=== PATIENT | male | born 1950 | race Caucasian/White ===

== ENCOUNTER 2016-12-02 12:34 | Inpatient (IN) | payer OTHER ==
[~2016-12-02] VITALS: Ht 177.8 cm; Wt 148.5 kg
[2016-12-02 13:18] LABS: HEMATOCRIT 28.7 % (38.0-50.0); MCH 33.6 PG (29.0-34.0); MCHC 33.8 G/DL (30.0-36.0); MCV 99.3 FL (86-99); MEAN PLAT.VOLUME 9.6 uM^3 (9.0-12.4); PLATELET COUNT 139 K/uL (156-360); RBC DIS.WIDTH-CV 13.4 % (11.8-14.6); RBC DIS.WIDTH-SD 48.8 % (39-53); RED BLOOD COUNT 2.89 M/uL (4.00-5.50); WHITE BLOOD COUNT 7.4 K/uL (4.1-10.2)
[2016-12-02 13:32] LABS: CHLORIDE 110 mEq/L (99-109); SODIUM 138 mEq/L (136-147)
[2016-12-02 13:34] LABS: GLUCOSE 198 mg/dL (70-99)
[2016-12-02 13:35] LABS: ANION GAP 11 MEQ/L (2-14)
[2016-12-02 13:38] LABS: GFR ESTIMATE (CALCULATED) 54 mL/min/
[2016-12-02] MEDS ORDERED: ARICEPT23 MG PO (13:38)
[2016-12-02 13:39] LABS: UREA NITROGEN (BUN) 31 mg/dL (9-23)
[2016-12-02] MEDS ORDERED: DOXYCYCLINE HY100 MG PO (13:39)
[2016-12-02] MEDS ORDERED: LO-DOSE ASPIRIN81 M1 PO (13:40)
[2016-12-02] MEDS ORDERED: IMDUR30 MG PO (13:41)
[2016-12-02] MEDS ORDERED: EZETIMIBE10 MG PO (13:41)
[2016-12-02] MEDS ORDERED: METOPROLOL SUCC50 MG PO (13:43)
[2016-12-02] MEDS ORDERED: MICARDIS80 MG PO (13:43)
[2016-12-02 13:44] LABS: TROP-I INTERPRETATION NEGATIVE; TROPONIN-I < 0.01 ng/mL (0.0-0.30)
[2016-12-02] MEDS ORDERED: OXAYDO5 MG PO (13:44)
[2016-12-02] MEDS ORDERED: MEMANTINE HCL10 MG PO (13:44)
[2016-12-02] MEDS ORDERED: NIACIN 500 MG500 MG PO (13:44)
[2016-12-02] MEDS ORDERED: ACTOS15 MG PO (13:45)
[2016-12-02] MEDS ORDERED: ZOLOFT100 MG PO (13:45)
[2016-12-02] MEDS ORDERED: SIMVASTATIN40 MG PO (13:46)
[2016-12-02] MEDS ORDERED: TRESIBA FL100 UNIT/1 SC (13:46)
[2016-12-02] MEDS ORDERED: ALDACTONE25 MG PO (13:46)
[2016-12-02 14:27] LABS: ADD MIUA? YES; BILIRUBIN NEGATIVE; BLOOD SMALL; COLOR YELLOW ((YELLOW)); GLUCOSE (STRIP) NEGATIVE; KETONES NEGATIVE; LEUKOCYTES NEGATIVE; NITRITE NEGATIVE; PROTEIN (STRIP) 100; SPECIFIC GRAVITY 1.018 (1.000-1.030); UROBILINOGEN 0.2 MG/DL (0.2-1.0)
[2016-12-02 14:44] LABS: BACTERIA NONE SEEN /HPF; EPITHELIAL CELLS RARE /HPF; HYALINE CASTS 0-5 /LPF; MUCUS TRACE /LPF; RED BLOOD CELLS 0-5 /HPF (0-5); UCUL ADDED? NO; WHITE BLOOD CELLS 0-5 /HPF (0-5)
[2016-12-02 16:18] LABS: TROP-I INTERPRETATION NEGATIVE; TROPONIN-I < 0.01 ng/mL (0.0-0.30)
[2016-12-02] MEDS ORDERED: VITAMIN D-3 401 EACH PO (16:24)
[2016-12-02] MEDS ORDERED: ERGOCALCIF50000 UNIT PO (16:24)
[2016-12-02] MEDS ORDERED: GLUCOSAMINE CH1 EAC2 PO (16:26)
[2016-12-02] MEDS ORDERED: VITAMIN B COMP1 EACH PO (16:29)
[2016-12-02] MEDS ORDERED: FEOSOL325 MG PO (16:29)
[2016-12-02] MEDS ORDERED: VITAMIN C500 M1 PO (16:29)
[2016-12-02 19:32] VITALS: BP 136/63
[2016-12-02 22:07] LABS: POINT-OF-CARE METER ID UU13113831
[2016-12-02 23:12] VITALS: BP 141/65
[2016-12-03] VITALS (8 sets, daily range): BP systolic 124–188; BP diastolic 58–86
[2016-12-03 01:15] LABS: TROP-I INTERPRETATION NEGATIVE; TROPONIN-I < 0.01 ng/mL (0.0-0.30)
[2016-12-03 05:56] LABS: ALKALINE PHOSPHATASE 94 IU/L (3-129); ANION GAP 9 MEQ/L (2-14); CHLORIDE 112 MEQ/L (99-109); DIRECT BILIRUBIN 0.1 mg/dL (0.0-0.3); GFR ESTIMATE (CALCULATED) 54 mL/min/; POTASSIUM 4.5 MEQ/L (3.7-5.4); SAMPLE HEMOLYSIS CHECK 0; SAMPLE ICTERIC CHECK 0; SAMPLE LIPEMIA CHECK 0; SODIUM 143 MEQ/L (136-147); TOTAL BILIRUBIN 0.7 MG/DL (0.0-1.0); UREA NITROGEN (BUN) 33 mg/dL (9-23)
[2016-12-03 06:05] LABS: TROP-I INTERPRETATION NEGATIVE; TROPONIN-I 0.02 ng/mL (0.0-0.30)
[2016-12-03 06:19] LABS: EOSINOPHIL (%) 1.9 % (0-5); EOSINOPHIL COUNT 0.1 K/uL (0-0.3); IMMATURE GRANULOCYTE (%) 0.4 % (0.0-0.7); INSTRUMENT ABS NEUTROPHIL CT 4.9 K/uL; LYMPHOCYTE COUNT 1.4 K/uL (1.0-2.8); MCH 34.7 PG (29.0-34.0); MCHC 33.6 G/DL (30.0-36.0); MEAN PLAT.VOLUME 9.7 uM^3 (9.0-12.4); MONOCYTE (%) 9.3 % (3-12); MONOCYTE COUNT 0.7 K/uL (0-0.8); NEUTROPHIL (%) 68.3 % (45-76); NEUTROPHIL COUNT 4.9 K/uL (1.8-6.4); PLATELET COUNT 135 K/uL (156-360); RBC DIS.WIDTH-CV 13.4 % (11.8-14.6); RBC DIS.WIDTH-SD 50.3 % (39-53); RED BLOOD COUNT 2.71 M/uL (4.00-5.50); WHITE BLOOD COUNT 7.2 K/uL (4.1-10.2)
[2016-12-03 06:23] LABS: MCV 103.3 FL (86-99)
[2016-12-03 06:25] LABS: GLUCOSE 81 mg/dL (70-99)
[2016-12-03 09:15] LABS: POINT-OF-CARE METER ID UU13113700
[2016-12-03 17:44] LABS: POINT-OF-CARE METER ID UU14174216
[2016-12-04 03:43] VITALS: BP 134/61
[2016-12-04 06:08] LABS: IRON 111 MCG/DL (35-150)
[2016-12-04 07:13] VITALS: BP 122/63
[2016-12-04 08:27] LABS: POINT-OF-CARE METER ID UU13113698; POINT-OF-CARE USER ID NUTSLF44
[2016-12-04 11:32] LABS: POINT-OF-CARE METER ID UU14314088; POINT-OF-CARE USER ID NUTSLF44
[2016-12-04 11:53] VITALS: BP 134/63
[2016-12-04 16:17] VITALS: BP 131/61
[2016-12-04 16:23] LABS: POINT-OF-CARE METER ID UU14314088; POINT-OF-CARE USER ID NUTSLF44
[2016-12-04 19:44] VITALS: BP 134/61
[2016-12-04 21:06] LABS: POINT-OF-CARE METER ID UU14174216
[2016-12-04 22:39] VITALS: BP 115/57
[2016-12-05 03:45] VITALS: BP 150/72
[2016-12-05 07:44] VITALS: BP 158/86
[2016-12-05 08:16] LABS: POINT-OF-CARE METER ID UU14174216; POINT-OF-CARE USER ID ENVKC36
[2016-12-05 11:48] LABS: POINT-OF-CARE METER ID UU14174216; POINT-OF-CARE USER ID ENVKC36
[2016-12-05 11:57] VITALS: BP 142/65
[2016-12-05] MEDS ORDERED: CYANOCOBALAM1000 MCG PO (12:10)
[2016-12-05 16:45] LABS: POINT-OF-CARE METER ID UU14314088; POINT-OF-CARE USER ID ENVKC36
[2016-12-05 18:00] VITALS: BP 145/65
== END 2016-12-05 19:00 | DRG 101 ==
LOC: EME 12:34 → EDOF 17:08 → ENRESERV 17:09 → 5WEST 19:05 → CANRESERV 12-03 11:24 → 4EAST 12-03 11:24 → ENRESERV 12-03 11:24 → 5WEST 12-03 11:24 → ENRESERV 12-03 11:27 → 4EAST 12-03 16:09 → ENPENDDIS 12-05 15:00 → 4EAST 12-05 19:00
PROVIDERS: Internal Medicine; Physician Assistant Medical
PROC: 0HQ0XZZ Repair Scalp Skin, External Approach (ICD-10-PCS; principal; 2016-12-02)
DX: R56.9 Unspecified convulsions (principal); R55 Syncope and collapse; E87.2 Acidosis; E11.22 Type 2 diabetes mellitus with diabetic chronic kidney disease; I13.10 Hypertensive heart and chronic kidney disease without heart failure, with stage 1 through stage 4 chronic kidney disease, or unspecified chronic kidney disease; N18.3 Chronic kidney disease, stage 3 (moderate); E86.0 Dehydration; S01.01XA Laceration without foreign body of scalp, initial encounter; S00.11XA Contusion of right eyelid and periocular area, initial encounter; W01.0XXA Fall on same level from slipping, tripping and stumbling without subsequent striking against object, initial encounter; G30.0 Alzheimer's disease with early onset; F02.80 Dementia in other diseases classified elsewhere, unspecified severity, without behavioral disturbance, psychotic disturbance, mood disturbance, and anxiety; D50.9 Iron deficiency anemia, unspecified; E53.8 Deficiency of other specified B group vitamins; E78.5 Hyperlipidemia, unspecified; G47.33 Obstructive sleep apnea (adult) (pediatric); F32.9 Major depressive disorder, single episode, unspecified; I25.10 Atherosclerotic heart disease of native coronary artery without angina pectoris; I73.9 Peripheral vascular disease, unspecified; M19.90 Unspecified osteoarthritis, unspecified site; Z96.643 Presence of artificial hip joint, bilateral; E66.01 Morbid (severe) obesity due to excess calories; Z68.42 Body mass index [BMI] 45.0-49.9, adult; Y92.094 Garage of other non-institutional residence as the place of occurrence of the external cause; Z91.81 History of falling; Z95.1 Presence of aortocoronary bypass graft; Z95.5 Presence of coronary angioplasty implant and graft
CPT/HCPCS: 70450; 71010; 72125; 73030; 80048; 80076; 81003; 82607; 82746; 82948; 83540; 84466; 84484; 85025; 85027; 93005; 93306; 95819; 99281; 99285; G0378; J1650; J1815; J2270; J2405; J7030; J7040

== ENCOUNTER 2016-12-05 14:09 | Inpatient (IN) | payer OTHER ==
[~2016-12-05] VITALS: Ht 177.8 cm; Wt 149.1 kg
[~2016-12-05 14:09] MED LIST: ACTOS15 MG PO; ALDACTONE25 MG PO; ARICEPT23 MG PO; CYANOCOBALAM1000 MCG PO; DOXYCYCLINE HY100 MG PO; ERGOCALCIF50000 UNIT PO; EZETIMIBE10 MG PO; FEOSOL325 MG PO; GLUCOSAMINE CH1 EAC2 PO; IMDUR30 MG PO; LO-DOSE ASPIRIN81 M1 PO; MEMANTINE HCL10 MG PO; METOPROLOL SUCC50 MG PO; MICARDIS80 MG PO; NIACIN 500 MG500 MG PO; OXAYDO5 MG PO; SIMVASTATIN40 MG PO; TRESIBA FL100 UNIT/1 SC; VITAMIN B COMP1 EACH PO; VITAMIN C500 M1 PO; VITAMIN D-3 401 EACH PO; ZOLOFT100 MG PO
[2016-12-05 19:29] VITALS: BP 127/77
[2016-12-05 19:36] VITALS: BP 127/77
[2016-12-05 21:44] LABS: POINT-OF-CARE METER ID UU13113720
[2016-12-06 05:28] VITALS: BP 153/85
[2016-12-06 06:37] LABS: MCH 34.7 PG (29.0-34.0); MCHC 34.4 G/DL (30.0-36.0); MCV 100.7 FL (86-99); PLATELET COUNT 144 K/uL (156-360); RBC DIS.WIDTH-CV 13.4 % (11.8-14.6); RBC DIS.WIDTH-SD 49.1 % (39-53); RED BLOOD COUNT 2.68 M/uL (4.00-5.50); WHITE BLOOD COUNT 5.8 K/uL (4.1-10.2)
[2016-12-06 07:00] LABS: POINT-OF-CARE METER ID UU14174215; POINT-OF-CARE USER ID ENVGAF
[2016-12-06 07:13] LABS: ALKALINE PHOSPHATASE 90 IU/L (3-129); ANION GAP 9 MEQ/L (2-14); CHLORIDE 105 MEQ/L (99-109); GFR ESTIMATE (CALCULATED) > 59 mL/min/; GLUCOSE 108 mg/dL (70-99); POTASSIUM 4.6 MEQ/L (3.7-5.4); SAMPLE HEMOLYSIS CHECK 0; SAMPLE ICTERIC CHECK 0; SAMPLE LIPEMIA CHECK 0; SODIUM 137 MEQ/L (136-147); UREA NITROGEN (BUN) 25 mg/dL (9-23)
[2016-12-06 07:14] LABS: TOTAL BILIRUBIN 0.5 MG/DL (0.0-1.0)
[2016-12-06 11:47] LABS: POINT-OF-CARE METER ID UU14174215; POINT-OF-CARE USER ID ENVGAF
[2016-12-06 15:17] VITALS: BP 111/86
[2016-12-06 16:39] LABS: POINT-OF-CARE METER ID UU13113720
[2016-12-06 20:53] LABS: POINT-OF-CARE METER ID UU13113720
[2016-12-07 05:31] VITALS: BP 135/60
[2016-12-07 06:54] LABS: POINT-OF-CARE METER ID UU14174215; POINT-OF-CARE USER ID ENVGAF
[2016-12-07 11:57] LABS: POINT-OF-CARE METER ID UU14174215
[2016-12-07 15:12] VITALS: BP 121/56
[2016-12-07 17:01] LABS: POINT-OF-CARE METER ID UU13113720
[2016-12-07 21:11] LABS: POINT-OF-CARE METER ID UU13113720
[2016-12-08 04:45] VITALS: BP 141/67
[2016-12-08 07:27] LABS: POINT-OF-CARE METER ID UU14174215
[2016-12-08 11:27] LABS: POINT-OF-CARE METER ID UU13113720; POINT-OF-CARE USER ID AHSSSJB31
[2016-12-08 15:16] VITALS: BP 105/53
[2016-12-08 16:50] LABS: POINT-OF-CARE METER ID UU14174215
[2016-12-08 21:20] LABS: POINT-OF-CARE METER ID UU14174215
[2016-12-09 04:26] VITALS: BP 128/82
[2016-12-09 07:09] LABS: POINT-OF-CARE METER ID UU14174215
[2016-12-09 11:02] LABS: POINT-OF-CARE METER ID UU14174215
[2016-12-09 13:30] VITALS: BP 107/53
[2016-12-09 16:02] VITALS: BP 117/58
[2016-12-09 16:44] LABS: POINT-OF-CARE METER ID UU13113720
[2016-12-09 21:12] LABS: POINT-OF-CARE METER ID UU14174215
[2016-12-10 04:41] VITALS: BP 131/61
[2016-12-10 06:56] LABS: POINT-OF-CARE METER ID UU13113720; POINT-OF-CARE USER ID ENVGAF
[2016-12-10 11:03] LABS: POINT-OF-CARE METER ID UU14174215
[2016-12-10 15:14] VITALS: BP 110/53
[2016-12-10 16:06] LABS: POINT-OF-CARE METER ID UU14174215
[2016-12-10 21:04] LABS: POINT-OF-CARE METER ID UU14174215
[2016-12-11 05:34] VITALS: BP 121/59
[2016-12-11 06:54] LABS: POINT-OF-CARE METER ID UU13113720; POINT-OF-CARE USER ID ENVGAF
[2016-12-11 11:39] LABS: POINT-OF-CARE METER ID UU14174215
[2016-12-11 15:08] VITALS: BP 135/61
[2016-12-11 16:33] LABS: POINT-OF-CARE METER ID UU14174215
[2016-12-11 21:14] LABS: POINT-OF-CARE METER ID UU14174215
[2016-12-12 05:06] VITALS: BP 142/67
[2016-12-12 07:05] LABS: POINT-OF-CARE METER ID UU14174215
[2016-12-12] MEDS ORDERED: TYLENOL REGULA325 MG PO (10:20)
== END 2016-12-12 11:30 | disposition home health service (06) | DRG 90 ==
LOC: 3WEST 14:09 → ENPENDDIS 12-12 → 3WEST 12-12 11:30
PROVIDERS: Physical Medicine & Rehabilitation Pain Medicine
DX: S06.0X9A Concussion with loss of consciousness of unspecified duration, initial encounter (principal); S01.01XA Laceration without foreign body of scalp, initial encounter; M48.02 Spinal stenosis, cervical region; M47.812 Spondylosis without myelopathy or radiculopathy, cervical region; F02.80 Dementia in other diseases classified elsewhere, unspecified severity, without behavioral disturbance, psychotic disturbance, mood disturbance, and anxiety; I27.20 Pulmonary hypertension, unspecified; D69.6 Thrombocytopenia, unspecified; G30.9 Alzheimer's disease, unspecified; R56.9 Unspecified convulsions; I10 Essential (primary) hypertension; E66.9 Obesity, unspecified; E11.9 Type 2 diabetes mellitus without complications; E78.5 Hyperlipidemia, unspecified; E86.0 Dehydration; I25.10 Atherosclerotic heart disease of native coronary artery without angina pectoris; M19.011 Primary osteoarthritis, right shoulder; D64.9 Anemia, unspecified; M50.30 Other cervical disc degeneration, unspecified cervical region; N28.9 Disorder of kidney and ureter, unspecified; I70.0 Atherosclerosis of aorta; I34.0 Nonrheumatic mitral (valve) insufficiency; Z95.1 Presence of aortocoronary bypass graft; Z82.49 Family history of ischemic heart disease and other diseases of the circulatory system; Z87.820 Personal history of traumatic brain injury
CPT/HCPCS: 80053; 82948; 85027; 92523 GN; 97110 GO; 97530 GP; J1650; J1815